=== PATIENT | male | born 1955 | race Caucasian/White ===

== ENCOUNTER 2020-10-14 18:12 | Emergency (ER) | payer MEDICARE ==
[~2020-10-14 18:12] MED LIST: COLCHICINE0.6 M1 PO; MELATONIN10 M2 PO; PROTONIX 40 MG40 M1 PO
[2020-10-14 18:33] LABS: HEMOGLOBIN 15.6 gm/dl (14.0-17.5); RED BLOOD COUNT 5.03 M/UL (4.20-5.50); WHITE BLOOD COUNT 11.3 K/UL (4.5-11.0)
[2020-10-14 18:55] LABS: BUN/CREATININE RATIO 16 (0-10)
[2020-10-14] MEDS ORDERED: HYDROCODON-ACE1 EAC4 PO (20:32)
[2020-10-14] MEDS ORDERED: CEFUROXIME500 MG PO (20:32)
== END 2020-10-14 21:25 | disposition home or self-care (01) ==
LOC: ER1 18:12
PROVIDERS: Preventive Medicine Occupational Medicine
DX: S62.521A Displaced fracture of distal phalanx of right thumb, initial encounter for closed fracture (principal); S20.212A Contusion of left front wall of thorax, initial encounter; X58.XXXA Exposure to other specified factors, initial encounter; Y92.009 Unspecified place in unspecified non-institutional (private) residence as the place of occurrence of the external cause; Z79.82 Long term (current) use of aspirin; Z79.899 Other long term (current) drug therapy
CPT/HCPCS: 70450; 71045; 71275; 72125; 72128; 72131; 72170; 73140; 80053; 82550; 82553; 83605; 83874; 84484; 85025; 85610; 85730; 86850; 86900; 86901; 96374; 96376; 99284; G0480; J2405; J7030; Q9967

== ENCOUNTER → 2020-12-23 | Outpatient (CLI) | payer MEDICARE ==
[~2020-12-23] MED LIST changes: +CEFUROXIME500 MG PO; +HYDROCODON-ACE1 EAC4 PO
== END ==
LOC: MRI 12-17 10:00 → EMI 08:09
DX: S46.012A Strain of muscle(s) and tendon(s) of the rotator cuff of left shoulder, initial encounter (principal); M50.10 Cervical disc disorder with radiculopathy, unspecified cervical region
CPT/HCPCS: 72141; 73221

== ENCOUNTER → 2021-04-18 | Outpatient (CLI) | payer MEDICARE ==
[~2021-04-18] MED LIST changes: +EPIPEN 2-P0.3 MG/0.3 INJ; +LISINOPRIL10 MG PO; +NEURONTIN300 MG PO; +PRAVASTATIN SOD40 MG PO; +PROBIOTIC1 EAC2 PO; +TYLENOL PM EX-1 EACH PO
[2021-04-18 12:58] LABS: HEMOGLOBIN 16.2 gm/dl (14.0-17.5); RED BLOOD COUNT 5.23 M/UL (4.20-5.50); WHITE BLOOD COUNT 7.5 K/UL (4.5-11.0)
[2021-04-18 13:20] LABS: BUN/CREATININE RATIO 13 (0-10)
== END ==
LOC: OPSV2 11:11
PROVIDERS: Nurse Practitioner Family
DX: Z01.818 Encounter for other preprocedural examination (principal); R06.4 Hyperventilation
CPT/HCPCS: 71046; 80048; 85025; 93005